=== PATIENT | male | born 1950 | race American Indian/Alaskan Native ===

== ENCOUNTER 2018-01-04 14:18 | Outpatient (CLI) | payer MEDICARE ==
--- NOTE | 2018-01-04 15:43 | XRay Report ---
XRAY CHEST TWO VIEWS: 01/04/18 14:18:00 CLINICAL: Cough. COMPARISON: 05/26/09 FINDINGS: Normal heart and pulmonary vasculature. The lungs are normally expanded and clear. Mild elevation of the right hemidiaphragm is not significantly changed compared to the prior exam. A few calcified right paratracheal and bilateral hilar lymph nodes. The bones and soft tissues are unremarkable. IMPRESSION: Old granulomatous disease. No acute cardiopulmonary process.
== END 2018-01-04 14:19 | disposition home or self-care (01) ==
LOC: XRAY 14:18
PROVIDERS: ATTEND Internal Medicine
DX: D71 Functional disorders of polymorphonuclear neutrophils (principal); J98.6 Disorders of diaphragm; R05 Cough
CPT/HCPCS: 71046